=== PATIENT | female | born 1955 | race Caucasian/White ===

== ENCOUNTER 2017-06-24 11:14 | Inpatient (IN) | payer MEDICAID ==
[2017-06-24] MEDS ORDERED: Albuterol/Ipratropium 3.0-0.5 MG/3 ML Neb Soln NEB ONE (12:11)
[2017-06-24] MEDS ORDERED: LORazepam 1 MG Tab PO ONE ×2 (12:34→18:27)
[2017-06-24] MEDS ORDERED: Albuterol/Ipratropium 3.0-0.5 MG/3 ML Neb Soln INH PRN (14:16)
[2017-06-24] MEDS: methylPREDNISolone Sodium Succinate 125 MG/2 ML SDV IVPUSH SCH ×2 (15:21→22:03)
[2017-06-24] MEDS: Levofloxacin/Dextrose 5%-Water 750 MG in Premix Bag 1 BAG IV SCH (15:22)
[2017-06-24] MEDS: Albuterol/Ipratropium 3.0-0.5 MG/3 ML Neb Soln NEB SCH ×2 (15:22→21:28)
[2017-06-24] MEDS: Codeine/guaiFENesin 100-10 MG/5 ML Syrup 5 ML Cup PO SCH ×2 (18:36→21:34)
[2017-06-24] MEDS ORDERED: Budesonide 0.5 MG/2 ML Neb Susp ONE (19:47)
--- NOTE | 2017-06-24 20:58 | ER ---
DATE SEEN: 06/24/2017 TIME SEEN: 1329 hours. CHIEF COMPLAINT: Cough. HISTORY OF PRESENT ILLNESS: This is a 61-year-old female with a cough for the last 1 week or so. Cough is dry, associated with wheezing, tightness, difficulty breathing. Recently admitted in [facility] for pneumonia, treated, sent home on cephalexin, but she has not really improved. She denies fever or chills. PAST MEDICAL HISTORY: Includes anxiety disorder, COPD, and asthma. SOCIAL HISTORY: She quit smoking 12 years ago. MEDICATIONS: Reviewed. PHYSICAL EXAMINATION: GENERAL: She is in mild respiratory distress. VITAL SIGNS: Blood pressure 165/85 and pulse 102. She is afebrile and oxygenation 97% on room air. EARS, NOSE, AND THROAT: Negative. NECK: Trachea is midline. CARDIOVASCULAR: Normal. RESPIRATORY: Extensive wheezing and rhonchi. EXTREMITIES: No edema. LABORATORY DATA: White cell count was within normal limits. CT chest revealed extensive infiltration. IMPRESSION: 1. Community-acquired pneumonia. 2. Chronic obstructive pulmonary disease exacerbation. PLAN: Admit for IV antibiotics. She was given DuoNeb at the ER and lorazepam with minimal improvement. We will obtain blood cultures, start Rocephin and azithromycin. /[id number] DARLENE/COLIN
[2017-06-24] MEDS: Arformoterol 15 MCG/2 ML Neb Soln INH SCH (21:28)
[2017-06-24] MEDS: Budesonide 0.25 MG/2 ML Neb Susp INH SCH (21:29)
[2017-06-24] MEDS: Benzonatate 100 MG Cap PO SCH (21:33)
[2017-06-24] MEDS: Fluticasone Propionate Nasal Spray 16 GM Bottle NASBOTH SCH (21:33)
[2017-06-24] MEDS: Sodium Chloride 0.9% 10 ML Syringe FLUSH PRN (22:04)
[2017-06-25] MEDS: Codeine/guaiFENesin 100-10 MG/5 ML Syrup 5 ML Cup PO SCH ×6 (02:35→21:54)
[2017-06-25] MEDS: Sodium Chloride 0.9% 10 ML Syringe FLUSH PRN ×5 (06:27→21:26)
[2017-06-25] MEDS: methylPREDNISolone Sodium Succinate 125 MG/2 ML SDV IVPUSH SCH ×3 (06:27→21:25)
[2017-06-25] MEDS: Fluticasone Propionate Nasal Spray 16 GM Bottle NASBOTH SCH ×2 (06:30→21:23)
[2017-06-25] MEDS: Albuterol/Ipratropium 3.0-0.5 MG/3 ML Neb Soln NEB SCH ×4 (07:39→21:22)
--- NOTE | 2017-06-25 08:11 | PCM.HP ---
H&P History of Present Illness - General Date of Service: 06/25/17 Admit Problem/Dx: Admission Diagnosis/Problem Admission Diagnosis/Problem Community acquired pneumonia Source of Information: Patient, Old Records, Significant Other History Limitations: Reports: Respiratory Distress - History of Present Illness Initial Comments - Free Text/Narative: I admitted this patient yesterday through the emergency room. Patient that being admitted in [place], [place] for pneumonia. From the records she was treated with cephalosporins. She came back to the ER because of worsening shortness of breath, cough, wheezing & anxiety. Nothing seems to help. Inher medical record, there is a history of COPD and asthma. She has a nebulized therapy of albuterol at home, Robitussin with codeine-for which the staff at [facility] thought she was addicted to -and Tessalon Perles, which have not been helping with the cough. She denied any chest pain headaches nausea of vomiting. Symptoms of approximately lasted 1 week - Related Data Allergies/Adverse Reactions: Allergies Allergy/AdvReac Type Severity Reaction Status Date / Time No Known Allergies Allergy Verified 06/24/17 14:09 Home Medications: Home Meds Arformoterol [Brovana] 1 inh INH BID 06/24/17 [History] Benzonatate [Tessalon Perles] 200 mg PO TID 06/24/17 [History] Budesonide [Pulmicort] 0.25 mg IH BID 06/24/17 [History] Cefuroxime [Ceftin] 500 mg PO BID 06/24/17 [History] ClonazePAM [KlonoPIN] 1 mg PO DAILY 06/24/17 [History] Codeine Phosphate/Guaifenesin [Guaifen-Codeine 100-10 mg/5 ml] 10 ml PO Q4HR [History] DULoxetine [Cymbalta] 30 mg PO DAILY 06/24/17 [History] Ferrous Sulfate 325 mg PO DAILY 06/24/17 [History] Fluticasone Propionate [Flonase] 1 spray NS BID 06/24/17 [History] Montelukast [Singulair] 10 mg PO DAILY 06/24/17 [History] Omeprazole 40 mg PO DAILY 06/24/17 [History] Pantoprazole Sodium [Protonix] 40 mg PO DAILY 06/24/17 [History] Potassium Chloride [Klor-Con 10] 1 tab PO BID 06/24/17 [History] Prednisone [IJD: Prednisone] See Taper PO ASDIRECTED 06/24/17 [History] Ziprasidone HCl [Geodon] 20 mg PO BEDTIME 06/24/17 [History] Past Medical History HEENT History: Reports: Impaired Vision Cardiovascular History: Reports: Other (See Below) Other Cardiovascular History: hyperlipidemia Respiratory History: Reports: Asthma, COPD Other Respiratory History: bronchatiectsis, Gastrointestinal History: Reports: GERD Other OB/BYN History: menopause Musculoskeletal History: Reports: Other (See Below) Other Musculoskeletal History: distal radius fracture Psychiatric History: Reports: Depression Hematologic History: Reports: Anemia - Infectious Disease History Infectious Disease History: Reports: Chicken Pox, Hepatitis C - Past Surgical History Respiratory Surgical History: Reports: None GI Surgical History: Reports: None Social & Family History - Family History Family Medical History: Noncontributory - Tobacco Use Smoking Status *Q: Former Smoker Years of Tobacco use: 30 Packs/Tins Daily: 1 Used Tobacco, but Quit: Yes Month Tobacco Last Used: May Second Hand Smoke Exposure: Yes - Caffeine Use Caffeine Use: Reports: Coffee, Soda - Recreational Drug Use Recreational Drug Use: No H&P Review of Systems - Review of Systems: Review Of Systems: ROS reveals no pertinent complaints other than HPI. Exam - Exam Exam: See Below - Vital Signs Vital Signs: Last Vital Signs Temp 98.1 F 06/25/17 02:30 Pulse 80 06/25/17 07:41 Resp 20 06/25/17 02:30 BP 156/64 H 06/25/17 02:30 Pulse Ox 97 06/25/17 07:41 Weight: 93.894 kg - Exam Quality Assessment: Supplemental Oxygen General: Alert, Oriented, 4 HEENT: PERRLA, Hearing Intact, Mucosa Moist & [place], Nares Patent, Normal Nasal Septum, Posterior Pharynx Clear, Conjunctiva Clear, EOMI, EACs Clear, TMs Clear Neck: Supple, Trachea Midline, 2 Lungs: Crackles, Rales Cardiovascular: Regular Rate, Regular Rhythm GI/Abdominal Exam: Normal Bowel Sounds, Soft, Non-Tender, No Organomegaly, No Distention, No Abnormal Bruit, No Mass, Pelvis Stable (Female) Exam: Normal External Exam, Normal Speculum Exam, Normal Bimanual Exam Rectal (Female) Exam: Normal Exam, Normal Rectal Tone Back Exam: Normal Inspection, Full Range of Motion, NT Extremities: Normal Inspection, Normal Range of Motion, Non-Tender, No Pedal Edema, Normal Capillary Refill Skin: Warm, Dry, Intact Neurological: Cranial Nerves Intact, Reflexes Equal Bilateral Neuro Extensive - Mental Status: Alert, Oriented x3, Normal Mood/Affect, Normal Cognition Neuro Extensive - Motor, Sensory, Reflexes: CN II-XII Intact, Normal Gait, Normal Reflexes Psychiatric: Anxious, Agitated - Patient Data Lab Results Last 24 hrs: Laboratory Results - last 24 hr 06/25/17 06/25/17 Range/Units 06:20 06:20 WBC 6.6 (4.5-12.0) X10-3/uL RBC 4.97 (3.23-5.20) x10(6)uL Hgb 13.1 (11.5-15.5) g/dL Hct 40.0 (30.0-51.3) % MCV 80.4 (80-96) fL MCH 26.4 L (27.7-33.6) pg MCHC 32.8 (32.2-35.4) g/dL RDW 14.8 (11.5-15.5) % Plt Count 271 (125-369) X10(3)uL MPV 8.6 (7.4-10.4) fL Neut % (Auto) 79.9 (46-82) % Lymph % (Auto) 17.7 (13-37) % [place] % (Auto) 2.1 L (4-12) % Eos % (Auto) 0 L (1.0-5.0) % Baso % (Auto) 0 (0-2) % Neut # (Auto) 5.3 (1.6-8.3) # Lymph # (Auto) 1.2 (0.6-5.0) # [place] # (Auto) 0.1 (0.0-1.3) # Eos # (Auto) 0.0 (0.0-0.8) # Baso # (Auto) 0.0 (0.0-0.2) # Sodium 140 (135-145) mmol/L Potassium 3.6 (3.5-5.3) mmol/L Chloride 102 (100-110) mmol/L Carbon Dioxide 28 (21-32) mmol/L BUN 12 (7-18) mg/dL Creatinine 0.8 (0.55-1.02) mg/dL Est Cr Clr Drug Dosing 59.89 mL/min Estimated GFR (MDRD) > 60 (>60) BUN/Creatinine Ratio 15.0 (9-20) Glucose 148 H (80-116) mg/dL Calcium 9.5 (8.6-10.2) mg/dL Result Diagrams: 06/25/17 06:20 06/25/17 06:20 [place] Results Last 24 hrs: Microbiology 06/24/17 14:51 Influenza Type A Antigen Screen - Final Nasal, Right NEGATIVE INFLUENZA A VIRUS AG Influenza Type B Antigen Screen - Final NEGATIVE INFLUENZA B VIRUS AG Imaging Impressions Last 24 hrs: CT chest-extensive infiltrates. EKG INTERPRETATION Rhythm: NSR *Q Meaningful Use (ADM) - VTE *Q VTE Criteria *Q: - Stroke *Q Stroke Criteria *Q: - AMI *Q AMI Criteria *Q: - Problem List (1) Pneumonia SNOMED Code(s): 493353757 ICD Code: J18.9 - PNEUMONIA, UNSPECIFIED ORGANISM Status: Acute Current Visit: Yes Qualifiers: Pneumonia type: due to unspecified organism (2) Anxiety SNOMED Code(s): 56447336 ICD Code: F41.9 - ANXIETY DISORDER, UNSPECIFIED Status: Acute Current Visit: Yes (3) COPD (chronic obstructive pulmonary disease) SNOMED Code(s): 25019864 ICD Code: J44.9 - CHRONIC OBSTRUCTIVE PULMONARY DISEASE, UNSPECIFIED Status : Acute Current Visit: Yes Qualifiers: COPD type: COPD with acute exacerbation Qualified Code(s): J44.1 - Chronic obstructive pulmonary disease with (acute) exacerbation (4) HLD (hyperlipidemia) SNOMED Code(s): 54580274 ICD Code: E78.5 - HYPERLIPIDEMIA, UNSPECIFIED Status: Acute Current Visit : Yes Qualifiers: Hyperlipidemia type: unspecified Qualified Code(s): E78.5 - Hyperlipidemia , unspecified (5) HTN (hypertension) SNOMED Code(s): 58723379 ICD Code: I10 - ESSENTIAL (PRIMARY) HYPERTENSION Status: Acute Current Visit: Yes Qualifiers: Hypertension type: unspecified secondary hypertension Qualified Code(s): I15.9 - Secondary hypertension, unspecified; I15 - Secondary hypertension (6) MDD (major depressive disorder) SNOMED Code(s): 297971896 ICD Code: F32.9 - MAJOR DEPRESSIVE DISORDER, SINGLE EPISODE, UNSPECIFIED Status: Acute Current Visit: Yes Qualifiers: Major depression recurrence: recurrent Psychotic features: without psychotic features (7) Elevated brain natriuretic peptide (BNP) level SNOMED Code(s): 603785533 ICD Code: R79.89 - OTHER SPECIFIED ABNORMAL FINDINGS OF BLOOD CHEMISTRY Status: Acute Current Visit: Yes Problem List Initiated/Reviewed/Updated: Yes Orders Last 24hrs: Active Orders 24 hr Category Date Time Status Patient Status [ADT] Routine ADT 06/24/17 14:01 Active Height and Weight [RC] DAILY Care 06/24/17 14:01 Active IS (RT) [RT Incentive Spirometry] [RC] ASDIRECTED Care 06/24/17 14:49 Active Intake and Output [RC] QSHIFT Care 06/24/17 14:02 Active Oxygen Therapy [RC] PRN Care 06/24/17 14:01 Active RT Aerosol Therapy [RC] ASDIRECTED Care 06/24/17 14:02 Active Vital Signs [RC] 00,04,08,12,16,20 Care 06/24/17 14:01 Active CULTURE BLOOD [BC] Urgent Lab 06/24/17 14:40 Received CULTURE BLOOD [BC] Urgent Lab 06/24/17 14:45 Received LEGIONELLA,PNEUMO AG URINE [REF] Routine Lab 06/24/17 14:01 Ordered Albuterol/Ipratropium [DuoNeb 3.0-0.5 MG/3 ML] Med 06/24/17 14:16 Active 3 ml INH ASDIRECTED PRN Albuterol/Ipratropium [DuoNeb 3.0-0.5 MG/3 ML] Med 06/24/17 16:00 Active 3 ml NEB QIDRT Arformoterol [Brovana] Med 06/24/17 21:00 Active 15 mcg INH BIDRT Benzonatate [Tessalon Perles] Med 06/24/17 21:00 Active 200 mg PO TID Budesonide [Pulmicort] Med 06/24/17 21:00 Active 0.25 mg INH BIDRT Codeine/guaiFENesin [Robitussin AC] Med 06/24/17 18:30 Active 10 ml PO Q4H DULoxetine [Cymbalta] Med 06/25/17 09:00 Ordered 60 mg PO DAILY Ferrous Sulfate Med 06/25/17 09:00 Active 325 mg PO DAILY Fluticasone Propionate [Flonase] Med 06/24/17 21:00 Active 0 gm NASBOTH BIDRT LORazepam [Ativan] Med 06/25/17 08:03 Ordered 1 mg IVPUSH Q6H PRN Levofloxacin/Dextrose 5%-Water [Levaquin in D5W 750 MG/ Med 06/24/17 15:00 Active 150 ML] 750 mg Premix Bag 1 bag IV Q24H Montelukast [Singulair] Med 06/25/17 09:00 Active 10 mg PO DAILY Pantoprazole [ProTONIX] Med 06/25/17 07:30 Active 40 mg PO ACBREAKFAST Sodium Chloride 0.9% [Saline Flush] Med 06/24/17 14:01 Active 10 ml FLUSH ASDIRECTED PRN Ziprasidone HCl [Geodon] Med 06/24/17 21:00 Pending 20 mg PO BEDTIME methylPREDNISolone Sod Succ [Solu-MEDROL] Med 06/24/17 15:00 Active 125 mg IVPUSH Q8H Blood Culture x2 Reflex Set [OM.PC] Urgent Oth 06/24/17 14:01 Ordered Saline Lock Insert [OM.PC] Routine Oth 06/24/17 14:01 Ordered Resuscitation Status Routine Resus Stat 06/24/17 14:01 Ordered EKG 12 Lead [EK] Routine Ther 06/24/17 14:01 Ordered Medication Orders Albuterol/Ipratropium (Duoneb 3.0-0.5 Mg/3 Ml) 3 ml NEB QIDRT COUNT INCLUDES THE [facility] Last Admin: 06/25/17 07:39 Dose: 3 ml Admin: 06/24/17 21:28 Dose: 3 ml Admin: 06/24/17 15:22 Dose: 3 ml Albuterol/Ipratropium (Duoneb 3.0-0.5 Mg/3 Ml) 3 ml INH ASDIRECTED PRN PRN Reason: Shortness of Breath Last Admin: 06/24/17 18:25 Dose: 3 ml Arformoterol Tartrate (Brovana) 15 mcg INH BIDRT COUNT INCLUDES THE [facility] Last Admin: 06/24/17 21:28 Dose: Benzonatate (Tessalon Perles) 200 mg PO TID COUNT INCLUDES THE [facility] Last Admin: 06/24/17 21:33 Dose: 200 mg Budesonide (Pulmicort) 0.25 mg INH BIDRT COUNT INCLUDES THE [facility] Last Admin: 06/24/17 21:29 Dose: 0.25 mg Duloxetine HCl (Cymbalta) 60 mg PO DAILY COUNT INCLUDES THE [facility] Ferrous Sulfate (Ferrous Sulfate) 325 mg PO DAILY COUNT INCLUDES THE [facility] Fluticasone Propionate (Flonase) 0 gm NASBOTH BIDRT COUNT INCLUDES THE [facility] Last Admin: 06/25/17 06:30 Dose: 1 spray Admin: 06/24/17 21:33 Dose: 1 spray Guaifenesin/Codeine Phosphate (Robitussin Ac) 10 ml PO Q4H COUNT INCLUDES THE [facility] Last Admin: 06/25/17 05:41 Dose: 10 ml Admin: 06/25/17 02:35 Dose: 10 ml Admin: 06/24/17 21:34 Dose: 10 ml Admin: 06/24/17 18:36 Dose: 10 ml Levofloxacin/Dextrose 750 mg/ (Premix) 150 mls @ 100 mls/hr IV Q24H COUNT INCLUDES THE [facility] Last Admin: 06/24/17 15:22 Dose: 100 mls/hr Lorazepam (Ativan) 1 mg IVPUSH Q6H PRN PRN Reason: Agitation Methylprednisolone Sodium Succinate (Solu-Medrol) 125 mg IVPUSH Q8H COUNT INCLUDES THE [facility] Last Admin: 06/25/17 06:27 Dose: 125 mg Admin: 06/24/17 22:03 Dose: 125 mg Admin: 06/24/17 15:21 Dose: 125 mg Montelukast Sodium (Singulair) 10 mg PO DAILY COUNT INCLUDES THE [facility] Non-Formulary Medication (Ziprasidone Hcl [Geodon]) 20 mg PO BEDTIME COUNT INCLUDES THE [facility] Pantoprazole Sodium (Protonix) 40 mg PO ACBREAKFAST COUNT INCLUDES THE [facility] Sodium Chloride (Saline Flush) 10 ml FLUSH ASDIRECTED PRN PRN Reason: Keep Vein Open Last Admin: 06/25/17 06:27 Dose: 10 ml Admin: 06/24/17 22:04 Dose: 10 ml Assessment/Plan Comment:: Patient has community-acquired pneumonia, which will need IV antibiotics. In addition blood cultures, obtained urine pneumoniae antigen and Legionella. I elected to treat her with Levaquin 750 mg daily. For COPD we'll continue with SVNs, and Solu-Medrol. Will use Tessalon pulse and Robitussin according symptomatically. I've elected to start on lorazepam IV every 4 hours 4-6 hours to help with the anxiety that she is pacing the floor up-and-down ,and all night long. Resume her home Cymbalta,increase to 60 mg daily.Due to an elevated BNP,I will obtain an echocardiogram today. Reeapt other labs in the morning, including drug screen,and TSH.
[2017-06-25] MEDS: LORazepam 2 MG/ML MDV IVPUSH PRN ×2 (08:51→22:10)
[2017-06-25] MEDS ORDERED: ClonazePAM 1 MG Tab PO SCH (09:00)
[2017-06-25] MEDS ORDERED: DULoxetine 60 MG Cap PO SCH (09:00)
[2017-06-25] MEDS: Pantoprazole 40 MG Tab.CR PO SCH (09:07)
[2017-06-25] MEDS: DULoxetine 60 MG Cap PO SCH ×2 (09:07→21:27)
[2017-06-25] MEDS: Ferrous Sulfate 325 MG Tab PO SCH (09:07)
[2017-06-25] MEDS: Benzonatate 100 MG Cap PO SCH ×3 (09:07→21:22)
[2017-06-25] MEDS: DULoxetine 30 MG Cap PO SCH (09:13)
[2017-06-25] MEDS: Arformoterol 15 MCG/2 ML Neb Soln INH SCH ×2 (09:21→21:21)
[2017-06-25] MEDS: Budesonide 0.25 MG/2 ML Neb Susp INH SCH ×2 (09:21→21:23)
[2017-06-25] MEDS: Ziprasidone HCl 20 MG Cap PO SCH (10:19)
--- NOTE | 2017-06-25 13:54 | CR ---
INDICATION: Cough. CHEST: PA and lateral views of the chest were obtained 06/24/2017. No comparison study was available. Findings revealed heavy markings in the left mid to lower lung field, suggesting patchy pneumonia in the left lower lobe and possibly left upper lobe. No gross consolidating pneumonia is identified, however. No pleural effusion was seen. The heart appeared normal in size and shape. The aorta is minimally tortuous. IMPRESSION: Possible patchy pneumonia in the left lower lobe and possibly left upper lobe to a lesser extent. MTDD
[2017-06-25] MEDS: Levofloxacin/Dextrose 5%-Water 750 MG in Premix Bag 1 BAG IV SCH (15:02)
[2017-06-25] MEDS ORDERED: Montelukast 10 MG Tab PO SCH (21:00)
[2017-06-25] MEDS ORDERED: Ziprasidone HCl 20 MG Cap PO SCH (21:00)
[2017-06-25] MEDS ORDERED: LORazepam 1 MG Tab PO ONE (22:21)
[2017-06-26] MEDS: Codeine/guaiFENesin 100-10 MG/5 ML Syrup 5 ML Cup PO SCH ×2 (03:41→06:21)
[2017-06-26] MEDS: Fluticasone Propionate Nasal Spray 16 GM Bottle NASBOTH SCH (06:14)
[2017-06-26] MEDS: methylPREDNISolone Sodium Succinate 125 MG/2 ML SDV IVPUSH SCH (06:16)
[2017-06-26] MEDS: Sodium Chloride 0.9% 10 ML Syringe FLUSH PRN ×2 (06:18→09:40)
[2017-06-26] MEDS: Pantoprazole 40 MG Tab.CR PO SCH ×2 (06:25→08:53)
[2017-06-26] MEDS: Arformoterol 15 MCG/2 ML Neb Soln INH SCH (07:19)
[2017-06-26] MEDS: Budesonide 0.25 MG/2 ML Neb Susp INH SCH (07:19)
[2017-06-26] MEDS: Albuterol/Ipratropium 3.0-0.5 MG/3 ML Neb Soln NEB SCH (07:19)
--- NOTE | 2017-06-26 08:18 | PCM.PN ---
- General Info Date of Service: 06/26/17 Subjective Update: Patient slipped better after 2 mg of IV lorazepam. She's exhibited severe anxiety. This produced at this has significantly improved with a cough. Functional Status: Reports: Pain Controlled - Review of Systems Pulmonary: Reports: Cough, Wheezing Psychiatric: Reports: Mood Lability, Anxiety - Patient Data Vitals - Most Recent: Last Vital Signs Temp 97.4 F 06/26/17 06:25 Pulse 96 06/26/17 06:25 Resp 18 06/26/17 06:25 BP 155/92 H 06/26/17 06:25 Pulse Ox 92 L 06/26/17 06:25 Weight - Most Recent: 92.59 kg I&O - Last 24 Hours: Intake & Output 06/25/17 06/26/17 06/26/17 22:59 06:59 14:59 Intake Total 150 Output Total 700 Balance -550 Lab Results Last 24 Hours: Laboratory Results - last 24 hr 06/25/17 06/26/17 06/26/17 Range/Units 12:05 06:20 06:20 WBC 9.0 (4.5-12.0) X10-3/uL RBC 4.74 (3.23-5.20) x10(6)uL Hgb 12.9 (11.5-15.5) g/dL Hct 38.4 (30.0-51.3) % MCV 81.2 (80-96) fL MCH 27.2 L (27.7-33.6) pg MCHC 33.5 (32.2-35.4) g/dL RDW 15.1 (11.5-15.5) % Plt Count 308 (125-369) X10(3)uL MPV 8.5 (7.4-10.4) fL Neut % (Auto) 78.4 (46-82) % Lymph % (Auto) 16.5 (13-37) % Cross % (Auto) 4.0 (4-12) % Eos % (Auto) 0 L (1.0-5.0) % Baso % (Auto) 1 (0-2) % Neut # (Auto) 7.0 (1.6-8.3) # Lymph # (Auto) 1.5 (0.6-5.0) # Cross # (Auto) 0.4 (0.0-1.3) # Eos # (Auto) 0.0 (0.0-0.8) # Baso # (Auto) 0.1 (0.0-0.2) # Sodium 141 (135-145) mmol/L Potassium 3.4 L (3.5-5.3) mmol/L Chloride 104 (100-110) mmol/L Carbon Dioxide 26 (21-32) mmol/L BUN 16 (7-18) mg/dL Creatinine 0.9 (0.55-1.02) mg/dL Est Cr Clr Drug Dosing 53.23 mL/min Estimated GFR (MDRD) > 60 (>60) BUN/Creatinine Ratio 17.8 (9-20) Glucose 143 H (80-116) mg/dL Calcium 9.1 (8.6-10.2) mg/dL NT-Pro-B Natriuret Pep (<=125) pg/mL TSH, Ultra Sensitive (0.36-3.74) IU/mL Urine Opiates Screen Positive H (NEGATIVE) Ur Oxycodone Screen Negative (NEGATIVE) Ur Propoxyphene Screen Negative (NEGATIVE) Ur Barbituates Screen Negative (NEGATIVE) Ur Tricyclics Screen Positive H (NEGATIVE) Ur Phencyclidine Scrn Negative (NEGATIVE) Ur Amphetamine Screen Negative (NEGATIVE) Urine MDMA Screen Negative (NEGATIVE) U Benzodiazepines Scrn Positive H (NEGATIVE) U Cocaine Metab Screen Negative (NEGATIVE) U Marijuana (THC) Screen Negative (NEGATIVE) 06/26/17 Range/Units 06:20 WBC (4.5-12.0) X10-3/uL RBC (3.23-5.20) x10(6)uL Hgb (11.5-15.5) g/dL Hct (30.0-51.3) % MCV (80-96) fL MCH (27.7-33.6) pg MCHC (32.2-35.4) g/dL RDW (11.5-15.5) % Plt Count (125-369) X10(3)uL MPV (7.4-10.4) fL Neut % (Auto) (46-82) % Lymph % (Auto) (13-37) % Cross % (Auto) (4-12) % Eos % (Auto) (1.0-5.0) % Baso % (Auto) (0-2) % Neut # (Auto) (1.6-8.3) # Lymph # (Auto) (0.6-5.0) # Cross # (Auto) (0.0-1.3) # Eos # (Auto) (0.0-0.8) # Baso # (Auto) (0.0-0.2) # Sodium (135-145) mmol/L Potassium (3.5-5.3) mmol/L Chloride (100-110) mmol/L Carbon Dioxide (21-32) mmol/L BUN (7-18) mg/dL Creatinine (0.55-1.02) mg/dL Est Cr Clr Drug Dosing mL/min Estimated GFR (MDRD) (>60) BUN/Creatinine Ratio (9-20) Glucose (80-116) mg/dL Calcium (8.6-10.2) mg/dL NT-Pro-B Natriuret Pep 1533 H* (<=125) pg/mL TSH, Ultra Sensitive 0.79 (0.36-3.74) IU/mL Urine Opiates Screen (NEGATIVE) Ur Oxycodone Screen (NEGATIVE) Ur Propoxyphene Screen (NEGATIVE) Ur Barbituates Screen (NEGATIVE) Ur Tricyclics Screen (NEGATIVE) Ur Phencyclidine Scrn (NEGATIVE) Ur Amphetamine Screen (NEGATIVE) Urine MDMA Screen (NEGATIVE) U Benzodiazepines Scrn (NEGATIVE) U Cocaine Metab Screen (NEGATIVE) U Marijuana (THC) Screen (NEGATIVE) [place] Results Last 24 Hours: Microbiology 06/24/17 14:45 Aerobic Blood Culture - Preliminary Blood - Venous - Lab Draw NO GROWTH AFTER 1 DAY Anaerobic Blood Culture - Preliminary NO GROWTH AFTER 1 DAY 06/24/17 14:40 Aerobic Blood Culture - Preliminary Blood - Venous NO GROWTH AFTER 1 DAY Anaerobic Blood Culture - Preliminary NO GROWTH AFTER 1 DAY Med Orders - Current: Current Medications Albuterol/Ipratropium (Duoneb 3.0-0.5 Mg/3 Ml) 3 ml NEB QIDRT [facility] Last Admin: 06/26/17 07:19 Dose: 3 ml Albuterol/Ipratropium (Duoneb 3.0-0.5 Mg/3 Ml) 3 ml INH ASDIRECTED PRN PRN Reason: Shortness of Breath Last Admin: 06/24/17 18:25 Dose: 3 ml Arformoterol Tartrate (Brovana) 15 mcg INH BIDRT [facility] Last Admin: 06/26/17 07:19 Dose: 15 mcg Benzonatate (Tessalon Perles) 200 mg PO TID [facility] Last Admin: 06/25/17 21:22 Dose: 200 mg Budesonide (Pulmicort) 0.25 mg INH BIDRT [facility] Last Admin: 06/26/17 07:19 Dose: 0.25 mg Duloxetine HCl (Cymbalta) 30 mg PO DAILY [facility] Last Admin: 06/25/17 09:13 Dose: 30 mg Duloxetine HCl (Cymbalta) 60 mg PO BID [facility] Last Admin: 06/25/17 21:27 Dose: 60 mg Ferrous Sulfate (Ferrous Sulfate) 325 mg PO DAILY [facility] Last Admin: 06/25/17 09:07 Dose: 325 mg Fluticasone Propionate (Flonase) 0 gm NASBOTH BIDRT [facility] Last Admin: 06/26/17 06:14 Dose: 1 spray Guaifenesin/Codeine Phosphate (Robitussin Ac) 10 ml PO Q4H [facility] Last Admin: 06/26/17 06:21 Dose: 10 ml Levofloxacin/Dextrose 750 mg/ (Premix) 150 mls @ 100 mls/hr IV Q24H [facility] Last Admin: 06/25/17 15:02 Dose: 100 mls/hr Lorazepam (Ativan) 1 mg IVPUSH Q6H PRN PRN Reason: Agitation Last Admin: 06/25/17 22:10 Dose: 1 mg Methylprednisolone Sodium Succinate (Solu-Medrol) 125 mg IVPUSH Q8H [facility] Last Admin: 06/26/17 06:16 Dose: 125 mg Montelukast Sodium (Singulair) 10 mg PO BEDTIME [facility] Last Admin: 06/25/17 21:34 Dose: 10 mg Pantoprazole Sodium (Protonix) 40 mg PO ACBREAKFAST [facility] Last Admin: 06/26/17 06:25 Dose: 40 mg Sodium Chloride (Saline Flush) 10 ml FLUSH ASDIRECTED PRN PRN Reason: Keep Vein Open Last Admin: 06/26/17 06:18 Dose: 10 ml Ziprasidone (Geodon) 20 mg PO DAILY [facility] Last Admin: 06/25/17 10:19 Dose: 20 mg Ziprasidone (Geodon) 40 mg PO BEDTIME [facility] Last Admin: 06/25/17 21:28 Dose: 40 mg Discontinued Medications Albuterol/Ipratropium (Duoneb 3.0-0.5 Mg/3 Ml) 3 ml NEB ONETIME ONE Stop: 06/24/17 12:12 Last Admin: 06/24/17 12:40 Dose: 3 ml Budesonide (Pulmicort) Confirm Administered Dose 0.5 mg .ROUTE .STK-MED ONE Stop: 06/24/17 19:48 Last Admin: 06/24/17 20:33 Dose: Not Given Clonazepam (Klonopin) 1 mg PO DAILY [facility] Duloxetine HCl (Cymbalta) 60 mg PO DAILY [facility] Hydroxyzine Pamoate (Vistaril) 50 mg PO BEDTIME PRN PRN Reason: Anxiety Last Admin: 06/24/17 21:36 Dose: 50 mg Hydroxyzine Pamoate (Vistaril) 100 mg PO ONETIME ONE Stop: 06/25/17 03:52 Last Admin: 06/25/17 04:01 Dose: 100 mg Lorazepam (Ativan) 1 mg PO ONETIME ONE Stop: 06/24/17 12:35 Last Admin: 06/24/17 12:39 Dose: 1 mg Lorazepam (Ativan) 1 mg PO ONETIME ONE Stop: 06/24/17 18:28 Last Admin: 06/24/17 18:34 Dose: 1 mg Lorazepam (Ativan) 2 mg PO ONETIME ONE Stop: 06/25/17 22:22 Last Admin: 06/25/17 22:27 Dose: 2 mg Methylprednisolone Sodium Succinate (Solu-Medrol) 125 mg IVPUSH Q8H [facility] Last Admin: 06/25/17 06:27 Dose: 125 mg - Exam Quality Assessment: No: Supplemental Oxygen General: Alert, Oriented, Cooperative, No Acute Distress HEENT: Pupils Equal, Pupils Reactive, EOMI, Mucous Membr. Moist/[place] Neck: Supple Lungs: Clear to Auscultation Cardiovascular: Regular Rate Psy/Mental Status: Alert - Problem List & Annotations (1) Pneumonia SNOMED Code(s): 880418311 Code(s): J18.9 - PNEUMONIA, UNSPECIFIED ORGANISM Status: Acute Current Visit: Yes Qualifiers: Pneumonia type: due to unspecified organism (2) Anxiety SNOMED Code(s): 59222009 Code(s): F41.9 - ANXIETY DISORDER, UNSPECIFIED Status: Acute Current Visit: Yes (3) COPD (chronic obstructive pulmonary disease) SNOMED Code(s): 87256584 Code(s): J44.9 - CHRONIC OBSTRUCTIVE PULMONARY DISEASE, UNSPECIFIED Status : Acute Current Visit: Yes Qualifiers: COPD type: COPD with acute exacerbation Qualified Code(s): J44.1 - Chronic obstructive pulmonary disease with (acute) exacerbation (4) HLD (hyperlipidemia) SNOMED Code(s): 51748532 Code(s): E78.5 - HYPERLIPIDEMIA, UNSPECIFIED Status: Acute Current Visit : Yes Qualifiers: Hyperlipidemia type: unspecified Qualified Code(s): E78.5 - Hyperlipidemia , unspecified (5) HTN (hypertension) SNOMED Code(s): 67447125 Code(s): I10 - ESSENTIAL (PRIMARY) HYPERTENSION Status: Acute Current Visit: Yes Qualifiers: Hypertension type: unspecified secondary hypertension Qualified Code(s): I15.9 - Secondary hypertension, unspecified; I15 - Secondary hypertension (6) MDD (major depressive disorder) SNOMED Code(s): 275184177 Code(s): F32.9 - MAJOR DEPRESSIVE DISORDER, SINGLE EPISODE, UNSPECIFIED Status: Acute Current Visit: Yes Qualifiers: Major depression recurrence: recurrent Psychotic features: without psychotic features (7) Elevated brain natriuretic peptide (BNP) level SNOMED Code(s): 947934437 Code(s): R79.89 - OTHER SPECIFIED ABNORMAL FINDINGS OF BLOOD CHEMISTRY Status: Acute Current Visit: Yes - Problem List Review Problem List Initiated/Reviewed/Updated: Yes - My Orders Last 24 Hours: My Active Orders 06/25/17 07:30 Pantoprazole [ProTONIX] 40 mg PO ACBREAKFAST 06/25/17 08:03 LORazepam [Ativan] 1 mg IVPUSH Q6H PRN 06/25/17 08:15 Echo Comp wo Cont [US] Routine 06/25/17 09:00 DULoxetine [Cymbalta] 30 mg PO DAILY DULoxetine [Cymbalta] 60 mg PO BID Ferrous Sulfate 325 mg PO DAILY Ziprasidone HCl [Geodon] 20 mg PO DAILY 06/25/17 14:00 methylPREDNISolone Sod Succ [Solu-MEDROL] 125 mg IVPUSH Q8H 12/26/17 21:00 Montelukast [Singulair] 10 mg PO BEDTIME Ziprasidone HCl [Geodon] 40 mg PO BEDTIME 06/27/17 05:11 PRO B-TYPE NATRIUR PEPT,BNPPRO [CHEM] DAILY 06/28/17 05:11 PRO B-TYPE NATRIUR PEPT,BNPPRO [CHEM] DAILY - Plan Plan:: I plan to discharge her home today. She'll go home on 750 mg of levaquion, Prednisone and an increased dose of Klonopin.To see Dr. Jasso on Saturday or return to the ED with any worsening symptoms
[2017-06-26] MEDS: DULoxetine 30 MG Cap PO SCH (09:26)
[2017-06-26] MEDS: DULoxetine 60 MG Cap PO SCH (09:26)
[2017-06-26] MEDS: Benzonatate 100 MG Cap PO SCH (09:27)
[2017-06-26] MEDS: Ferrous Sulfate 325 MG Tab PO SCH (09:27)
[2017-06-26] MEDS: Ziprasidone HCl 20 MG Cap PO SCH (09:27)
[2017-06-26] MEDS: LORazepam 2 MG/ML MDV IVPUSH PRN (09:40)
--- NOTE | 2017-06-27 00:11 | DISCH ---
DISCHARGE DATE: 06/26/2017 REASON FOR ADMISSION: Community-acquired pneumonia. DISCHARGE DIAGNOSES: 1. Community-acquired pneumonia. 2. Chronic obstructive pulmonary disease. 3. Asthma. 4. Severe anxiety. BRIEF HISTORY AND HOSPITAL COURSE: This is a 61-year-old female, who came in with shortness of breath and cough, wheezing, and a CT revealed bilateral community-acquired pneumonia. She was severely anxious, was admitted for SVN treatment, IV antibiotics, and steroids. She was given Levaquin 750 mg IV, 125 mg of IV Solu-Medrol every 8 hours, and lorazepam up to 2 mg at a time to help calm her down. She also needed Tessalon Perles and Robitussin with Codeine to help the cough. She improved and was discharged home to follow up on Saturday. The CT report did indicate that a close followup will be recommended to determine the resolution of the infiltrates. DISCHARGE MEDICATIONS: 1. Klonopin 1 mg every 6 hours p.r.n. 2. Levaquin 750 mg daily for 5 more days. 3. She will go home on DuoNeb every 6 hours p.r.n. 4. Brovana 1 inhalation b.i.d. 5. Tessalon Perles 200 mg t.i.d. 6. Pulmicort 0.25 mg inhaled b.i.d. 7. Cymbalta a total of about 120 mg a day. 8. Ferrous sulfate 325 mg a day. 9. Prednisone 10 mg b.i.d. for 5 days. 10.Protonix 40 mg a day. 11.Geodon 40 mg at bedtime and 20 mg in the morning. FOLLOWUP: Follow up with Dr. Jasso on Saturday since Saturday is a holiday. Please note that I spent more than 35 minutes in discharge of the patient. /[id number] Beto COLON/COLIN
== END 2017-06-26 10:10 | disposition home or self-care (01) | DRG 194 ==
LOC: FB.ED 11:14 → FB.MS 13:32
PROVIDERS: ADMIT Family Medicine; ATTEND Family Medicine
DX: J18.9 Pneumonia, unspecified organism (principal); J44.1 Chronic obstructive pulmonary disease with (acute) exacerbation; J44.0 Chronic obstructive pulmonary disease with (acute) lower respiratory infection; Z87.891 Personal history of nicotine dependence; I15.9 Secondary hypertension, unspecified; E78.5 Hyperlipidemia, unspecified; F32.9 Major depressive disorder, single episode, unspecified; K21.9 Gastro-esophageal reflux disease without esophagitis; F41.8 Other specified anxiety disorders; H54.7 Unspecified visual loss; R79.89 Other specified abnormal findings of blood chemistry; Z79.52 Long term (current) use of systemic steroids; D64.9 Anemia, unspecified; Z86.19 Personal history of other infectious and parasitic diseases
CPT/HCPCS: 36415; 71020; 71250; 80048; 80305; 83880; 84443; 85025; 87040; 87449; 87804; 93005; 93306; 94150; 94640; 99285; A9270-GY; J1956; J2060; J2930; J7050; J7605; J7620; J7634